=== PATIENT | male | born 1960 | race Caucasian/White ===

== ENCOUNTER 2017-07-25 13:54 | Emergency (ER) | payer OTHER ==
[~2017-07-25] VITALS: Ht 180.3 cm; Wt 90.7 kg
[~2017-07-25 13:54] MED LIST: CEPHALEXIN500 MG PO; CLOBETASOL PROP15 G1 TOP; DICLOXACILLIN500 MG PO; FENOFIBRATE160 MG PO; FISH OIL500 MG PO; HYDROCODON-ACE1 EA11 PO; IBUPROFEN800 MG PO; LEXAPRO20 MG PO; NORCO 7.5-3251 EACH PO
[2017-07-25] MEDS ORDERED: VENTOLIN HFA18 GM INH (14:06)
--- NOTE | 2017-07-25 17:25 | EKG ---
[facility] [address] [facility] [place] [address] Signed Normal sinus rhythm Nonspecific ST and T wave abnormality Abnormal ECG No previous ECGs available Confirmed by GARRICK GRECO MD ([id number]) on 07/25/2017 5:25:39 PM Electronically Signed By: GARRICK GRECO MD 07/25/17 1725 PATIENT NAME: GODWIN MCCANN Electrocardiogram DATE OF : 62 PHYSICIAN: GARRICK GRECO MD REPORT #: [id number] REPORT IS CONFIDENTIAL AND NOT TO BE RELEASED WITHOUT AUTHORIZATION
== END 2017-07-25 15:27 | disposition home or self-care (01) ==
LOC: ED 13:54
DX: R07.2 Precordial pain (principal); Z87.01 Personal history of pneumonia (recurrent); Z88.8 Allergy status to other drugs, medicaments and biological substances; Z79.899 Other long term (current) drug therapy
CPT/HCPCS: 71046; 80053; 82150; 83690; 84484; 85025; 93005; 93010; 96374; 99284

== ENCOUNTER 2017-08-04 03:59 | Emergency (ER) | payer OTHER ==
[~2017-08-04] VITALS: Ht 180.3 cm; Wt 90.7 kg
[~2017-08-04 03:59] MED LIST changes: +VENTOLIN HFA18 GM INH
[2017-08-04] MEDS ORDERED: BACTRIM DS TAB1 EACH PO (04:25)
[2017-08-04] MEDS ORDERED: CEPHALEXIN500 MG PO (04:25)
== END 2017-08-04 04:32 | disposition home or self-care (01) ==
LOC: ED 03:59
DX: L08.9 Local infection of the skin and subcutaneous tissue, unspecified (principal); S60.940 Unspecified superficial injury of right index finger; Z88.8 Allergy status to other drugs, medicaments and biological substances; Z79.899 Other long term (current) drug therapy; W22.8XXD Striking against or struck by other objects, subsequent encounter
CPT/HCPCS: 99283

== ENCOUNTER 2019-03-28 18:23 | Emergency (ER) | payer OTHER ==
[~2019-03-28] VITALS: Ht 180.3 cm; Wt 99.8 kg
[~2019-03-28 18:23] MED LIST changes: +BACTRIM DS TAB1 EACH PO
[2019-03-28] MEDS ORDERED: MEDROL4 M1 PO (19:42)
[2019-03-28] MEDS ORDERED: METHOCARBAMOL500 MG PO (19:42)
[2019-03-28] MEDS ORDERED: NORCO 5-325 TA1 EACH PO (19:42)
== END 2019-03-28 19:55 | disposition home or self-care (01) ==
LOC: ED 18:23
DX: G89.29 Other chronic pain (principal); M54.5 Low back pain; Z88.8 Allergy status to other drugs, medicaments and biological substances; Z79.899 Other long term (current) drug therapy
CPT/HCPCS: 99283

== ENCOUNTER 2019-07-26 15:11 | Emergency (ER) | payer OTHER ==
[~2019-07-26] VITALS: Ht 180.3 cm; Wt 99.8 kg
[~2019-07-26 15:11] MED LIST changes: +MEDROL4 M1 PO; +METHOCARBAMOL500 MG PO; +NORCO 5-325 TA1 EACH PO
--- NOTE | 2019-07-27 07:54 | EKG ---
[facility] [address] [facility] [place] [address] Signed Sinus rhythm with frequent premature ventricular complexes in a pattern of bigeminy Otherwise normal ECG When compared with ECG of 07-JAN-2019 16:02, premature ventricular complexes are now present Non-specific change in ST segment in Lateral leads Confirmed by FAIZA PISANO MD ([id number]) on 07/27/2019 7:54:14 AM Electronically Signed By: FAIZA PISANO MD 07/27/19 0754 PATIENT NAME: GODWIN MCCANN Electrocardiogram DATE OF : 62 PHYSICIAN: FAIZA PISANO MD REPORT #: [id number] REPORT IS CONFIDENTIAL AND NOT TO BE RELEASED WITHOUT AUTHORIZATION
== END 2019-07-26 17:30 | disposition home or self-care (01) ==
LOC: ED 15:11
DX: I49.3 Ventricular premature depolarization (principal); Z88.8 Allergy status to other drugs, medicaments and biological substances; Z79.899 Other long term (current) drug therapy; Z79.52 Long term (current) use of systemic steroids
CPT/HCPCS: 0297T; 71045; 80053; 83735; 84443; 84484; 85025; 93005; 93010; 99285-25

== ENCOUNTER 2021-03-16 10:39 | Emergency (ER) | payer OTHER ==
[~2021-03-16] VITALS: Ht 180.3 cm; Wt 99.8 kg
[2021-03-16] MEDS ORDERED: TRAZODONE HCL100 MG PO (10:54)
[2021-03-16] MEDS ORDERED: CYCLOBENZAPRINE10 MG PO (10:54)
[2021-03-16] MEDS ORDERED: DICLOFENAC SOD100 G1 TOP (10:55)
[2021-03-16] MEDS ORDERED: ABILIFY10 MG PO (10:55)
--- NOTE | 2021-03-17 06:30 | EKG ---
[facility] [address] [place] [address] Signed Normal sinus rhythm Minimal voltage criteria for LVH, may be normal variant Borderline ECG When compared with ECG of 26-JUL-2019 15:14, premature ventricular complexes are no longer present Confirmed by FAIZA PISANO MD ([id number]) on 03/17/2021 6:29:47 AM Electronically Signed By: FAIZA PISANO MD 03/17/21 0630 PATIENT NAME: GODWIN MCCANN Electrocardiogram DATE OF : 62 PHYSICIAN: FAIZA PISANO MD REPORT #: [id number] REPORT IS CONFIDENTIAL AND NOT TO BE RELEASED WITHOUT AUTHORIZATION
== END 2021-03-16 11:54 | disposition home or self-care (01) ==
LOC: ED 10:39
DX: R07.89 Other chest pain (principal); M79.602 Pain in left arm; Z79.899 Other long term (current) drug therapy; Z88.8 Allergy status to other drugs, medicaments and biological substances; Z91.018 Allergy to other foods
CPT/HCPCS: 71046; 80053; 83735; 84484; 85025; 93005; 93010; 99285-25

== ENCOUNTER 2022-06-11 13:53 | Emergency (ER) | payer OTHER ==
[~2022-06-11] VITALS: Ht 180.3 cm; Wt 111.4 kg
[~2022-06-11 13:53] MED LIST changes: +ABILIFY10 MG PO; +CYCLOBENZAPRINE10 MG PO; +DICLOFENAC SOD100 G1 TOP; +TRAZODONE HCL100 MG PO
[2022-06-11] MEDS ORDERED: ATORVASTATIN CA20 MG PO (14:47)
[2022-06-12] MEDS ORDERED: ELIQUIS5 MG PO ×4 (08:13→08:37)
--- NOTE | 2022-06-13 00:09 | EKG ---
[facility] [address] [place] [address] Signed Sinus rhythm with frequent premature ventricular complexes Prolonged QT Abnormal ECG When compared with ECG of 16-MAR-2021 10:49, premature ventricular complexes are now present Vent. rate has increased BY 32 BPM QT has lengthened Confirmed by FAIZA PISNAO MD ([id number]) on 06/13/2022 12:09:29 AM Electronically Signed By: FAIZA PISANO MD 06/13/22 0009 PATIENT NAME: GODWIN MCCANN Electrocardiogram DATE OF : 62 PHYSICIAN: FAIZA PISANO MD REPORT #: [id number] REPORT IS CONFIDENTIAL AND NOT TO BE RELEASED WITHOUT AUTHORIZATION
--- NOTE | 2022-06-13 00:10 | EKG ---
[facility] [address] [place] [address] Signed Sinus bradycardia with 1st degree AV block Nonspecific T wave abnormality Abnormal ECG When compared with ECG of 11-JUN-2022 14:03, (Unconfirmed) premature ventricular complexes are no longer present Vent. rate has decreased BY 43 BPM Nonspecific T wave abnormality now evident in Inferior leads QT has shortened Confirmed by FAIZA PISANO MD ([id number]) on 06/13/2022 12:10:04 AM Electronically Signed By: FAIZA PISANO MD 06/13/22 0010 PATIENT NAME: GODWIN MCCANN Electrocardiogram DATE OF : 62 PHYSICIAN: FAIZA PISANO MD REPORT #: [id number] REPORT IS CONFIDENTIAL AND NOT TO BE RELEASED WITHOUT AUTHORIZATION
== END 2022-06-12 08:36 | disposition home or self-care (01) ==
LOC: ED 13:53
DX: I26.99 Other pulmonary embolism without acute cor pulmonale (principal); Z88.8 Allergy status to other drugs, medicaments and biological substances; Z91.018 Allergy to other foods; Z79.899 Other long term (current) drug therapy; Z79.01 Long term (current) use of anticoagulants; Z20.822 Contact with and (suspected) exposure to COVID-19
CPT/HCPCS: 36415; 71045; 71260; 80053; 83735; 83880; 84484; 85025; 85379; 87502; 93005; 93010; 96372; 99285-25; A9270; C9803; J1650; Q9967; U0003

== ENCOUNTER 2022-06-17 13:05 | Emergency (ER) | payer OTHER ==
[~2022-06-17] VITALS: Ht 180.3 cm; Wt 111.4 kg
[~2022-06-17 13:05] MED LIST changes: +ATORVASTATIN CA20 MG PO; +ELIQUIS5 MG PO
--- OUTSIDE RECORDS SUMMARY | 2022-06-17 13:13 | XMS ---
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 [place] VISIT COUNT (12 MO.) 2 [facility] TOTAL 2 NOTE: Visits indicate total known visits. 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
--- NOTE | 2022-06-17 17:25 | EKG ---
[facility] [address] [facility] [place] [address] Signed Sinus rhythm with occasional premature ventricular complexes Nonspecific T wave abnormality Abnormal ECG When compared with ECG of 11-JUN-2022 17:23, premature ventricular complexes are now present Confirmed by GARRICK GRECO MD ([id number]) on 06/17/2022 5:25:37 PM Electronically Signed By: GARRICK GRECO MD 06/17/22 1725 PATIENT NAME: GODWIN MCCANN Electrocardiogram DATE OF : 62 PHYSICIAN: GARRICK GRECO MD REPORT #: [id number] REPORT IS CONFIDENTIAL AND NOT TO BE RELEASED WITHOUT AUTHORIZATION
== END 2022-06-17 15:35 | disposition home or self-care (01) ==
LOC: ED 13:05
DX: I26.99 Other pulmonary embolism without acute cor pulmonale (principal); Z79.01 Long term (current) use of anticoagulants; Z88.8 Allergy status to other drugs, medicaments and biological substances; Z91.048 Other nonmedicinal substance allergy status; Z79.899 Other long term (current) drug therapy
CPT/HCPCS: 36415; 71045; 80053; 83735; 84443; 84484; 85025; 85610; 93005; 93010; J7121

== ENCOUNTER 2023-11-08 06:55 | Emergency (ER) | payer OTHER ==
[~2023-11-08] VITALS: Ht 180.3 cm; Wt 98.7 kg
--- OUTSIDE RECORDS SUMMARY | 2023-11-08 06:57 | XMS ---
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 Fitz has no Care Guidelines for this patient. [place] VISIT COUNT (12 MO.) 1 [facility] TOTAL 1 NOTE: Visits indicate total known visits. ED/C VISIT TRACKING (12 MO.) 11/08/2023 06:55 [facility] [place] TYPE: Emergency COMPLAINT: - CHEST PAIN INPATIENT VISIT TRACKING (12 MO.) No inpatient visits to display in this time frame [email or web address]
[2023-11-08] MEDS ORDERED: ESCITALOPRAM OX20 MG PO (07:00)
[2023-11-08 07:08] LABS: BASOPHILS 1.2 % (0-2); EOSINOPHILS 4.2 % (0-6); HEMATOCRIT 44.4 % (35.0-50.0); HEMOGLOBIN 15.2 g/dL (12.0-18.0); LYMPHOCYTES 42.6 % (24-44); MCHC 34.3 g/dl (30-36); MCV 93.4 fl (81-99); MONOCYTES 8.7 % (0-12); NEUTROPHILS 43.3 % (39-80); PLATELET COUNT 264 K/uL (140-440); RBC 4.75 M/ul (4.3-5.7); RDW 13.2 (10.5-15.0)
[2023-11-08 07:24] LABS: ALBUMIN 4.5 g/dL (3.4-5.0); ALBUMIN/GLOBULIN RATIO 1.45 (1.1-2.4); BILIRUBIN, TOTAL 0.6 ng/dL (0.2-1.0); BUN/CREATININE RATIO 18.4 (6.0-28.6); CALCIUM 9.3 mg/dL (8.5-10.1); CREATININE, SERUM 1.25 mg/dL (0.70-1.30); MAGNESIUM 2.4 mg/dL (1.8-2.4); PROTEIN, TOTAL 7.6 g/dL (6.4-8.2)
[2023-11-08 09:26] VITALS: BP 120/80
--- NOTE | 2023-11-08 11:58 | EKG ---
[facility] [address] [facility] [place] [address] Signed Sinus bradycardia with 1st degree AV block with occasional premature ventricular complexes Otherwise normal ECG No previous ECGs available Confirmed by SUZY SAMPSON MD ([id number]) on 11/08/2023 11:57:54 AM Electronically Signed By: SUZY SAMPSON 11/08/23 1158 PATIENT NAME: GODWIN MCCANN Electrocardiogram DATE OF : 62 PHYSICIAN: SUZY SAMPSON REPORT #: [id number] REPORT IS CONFIDENTIAL AND NOT TO BE RELEASED WITHOUT AUTHORIZATION
== END 2023-11-08 09:28 | disposition home or self-care (01) ==
LOC: ED 06:55
PROVIDERS: Emergency Medicine
DX: R00.2 Palpitations (principal); R07.2 Precordial pain; I44.0 Atrioventricular block, first degree; E78.5 Hyperlipidemia, unspecified; Z88.3 Allergy status to other anti-infective agents; Z91.018 Allergy to other foods; Z79.01 Long term (current) use of anticoagulants; Z79.1 Long term (current) use of non-steroidal anti-inflammatories (NSAID); Z79.51 Long term (current) use of inhaled steroids; Z79.899 Other long term (current) drug therapy; F17.220 Nicotine dependence, chewing tobacco, uncomplicated
CPT/HCPCS: 36415; 71045; 80053; 83735; 84484; 85025; 93005; 93010; 99285-25

== ENCOUNTER 2024-12-18 07:47 | Day surgery (SDC) | payer OTHER ==
[~2024-12-18] VITALS: Ht 180.3 cm; Wt 109.5 kg
[~2024-12-18 07:47] MED LIST changes: +DICYCLOMINE HCL20 MG PO; +ESCITALOPRAM OX20 MG PO; +FOLIC ACID0.8 MG PO; +IBLOOD GLUCOSE TEST STRIP 1 EA TEST VI PRN; +LACTATED RINGER'S 1,000 ML IV SCH; +LIDOCAINE HCL 1% 5 ML SDV INJ ONE; +METOPROLOL SUCC25 MG PO; +OMEPRAZOLE20 MG PO; +PROVIGIL100 MG PO; +VITAMIN D350 MCG PO
[2024-12-18 07:56] VITALS: BP 128/78
--- NOTE | 2024-12-18 12:00 | NUR ---
12/18/24 1200 Layne Tilley 1151-PATIENT ARRIVED TO PACU ON RA 90-91% RR EVEN. NONAROUSABLE LAYING LEFT LATERAL ABDOMEN SOFT. SINUS BRADYCARDIA HR 50'S. 1155-PATIENT PLACED ON 2L NC 90% ON RA. 1200-PATIENT PASSING GAS. 2L NC 95% RR EVEN. NONAROUSABLE.
[2024-12-18] MEDS ORDERED: CARAFATE1 GM PO (12:04)
[2024-12-18 12:53] VITALS: BP 117/69
== END 2024-12-18 13:00 | disposition home or self-care (01) ==
LOC: DS 07:47 → OPS 07:47
PROVIDERS: ATTEND Surgery
PROC: 0DBP8ZX Excision of Rectum, Via Natural or Artificial Opening Endoscopic, Diagnostic (ICD-10-PCS; 2024-12-18)
PROC: 0DBF8ZX Excision of Right Large Intestine, Via Natural or Artificial Opening Endoscopic, Diagnostic (ICD-10-PCS; 2024-12-18)
PROC: 0DB48ZX Excision of Esophagogastric Junction, Via Natural or Artificial Opening Endoscopic, Diagnostic (ICD-10-PCS; 2024-12-18)
PROC: 0DB78ZX Excision of Stomach, Pylorus, Via Natural or Artificial Opening Endoscopic, Diagnostic (ICD-10-PCS; 2024-12-18)
PROC: 0DBG8ZX Excision of Left Large Intestine, Via Natural or Artificial Opening Endoscopic, Diagnostic (ICD-10-PCS; principal; 2024-12-18 10:10)
PROC: 0DBL8ZX Excision of Transverse Colon, Via Natural or Artificial Opening Endoscopic, Diagnostic (ICD-10-PCS; 2024-12-18 10:10)
DX: K52.9 Noninfective gastroenteritis and colitis, unspecified (principal); K21.9 Gastro-esophageal reflux disease without esophagitis; K62.1 Rectal polyp; K29.50 Unspecified chronic gastritis without bleeding; K25.9 Gastric ulcer, unspecified as acute or chronic, without hemorrhage or perforation; K44.9 Diaphragmatic hernia without obstruction or gangrene; G20.A1 Parkinson's disease without dyskinesia, without mention of fluctuations; J45.909 Unspecified asthma, uncomplicated; F17.220 Nicotine dependence, chewing tobacco, uncomplicated; I49.3 Ventricular premature depolarization; Z86.711 Personal history of pulmonary embolism; Z80.0 Family history of malignant neoplasm of digestive organs; Z79.01 Long term (current) use of anticoagulants; Z79.899 Other long term (current) drug therapy; Z88.8 Allergy status to other drugs, medicaments and biological substances
CPT/HCPCS: 00813; J2704; J7121